=== PATIENT | female | born 2000 | race Caucasian/White ===

== ENCOUNTER 2022-05-31 22:38 | Emergency (ER) | payer SELFPAY ==
[2022-05-31 22:38] VITALS: BP 136/84; PULSE 87; RESP 18; TEMP 36.3; O2SAT 100; BMI 23.0
--- NOTE | 2022-06-01 00:33 | EX.ED.DYSGE1 ---
HPI History of Present Illness Chief Complaint: Allergic Reaction Narrative Narrative: Patient is a 21-year-old female with no significant past medical history. She states that she was recently on amoxicillin for an infection and took it for a full 7 days as directed. She states after finishing the medication she began with a pruritic rash. She states she went to urgent care where she was diagnosed with an allergic drug reaction and placed on prednisone. Patient states that she is taken a dose of prednisone but despite doing this she feels the rash has worsened and therefore she comes in for evaluation. Patient states other than the recent antibiotic she has no new exposures PFSH PFSH Allergy/AdvReac Type Severity Reaction Status Date / Time amoxicillin Allergy Rash Verified 05/31/22 22:41 Social History Smoking Status: Never smoker ROS ROS ED Constitutional Constitutional ED: Denies chills or fever(s) ENT ENT ED: Denies sore throat Cardiovascular Cardiovascular: Denies chest pain Respiratory/Chest Respiratory/Chest: Denies cough or dyspnea Gastrointestinal Gastrointestinal: Denies abdominal pain, diarrhea, nausea or vomiting Genitourinary Genitourinary ED: Denies dysuria Musculoskeletal Musculoskeletal: Denies myalgias Integumentary Reports rash Neurologic Neurologic: Denies headache(s) Hematologic/Lymphatic Hematologic/Lymphatic: Denies easy bleeding or easy bruising EXAM Physical Exam Const Vital Signs: 05/31/22 22:38 Temperature 97.3 F L Temperature Source Temporal Pulse Rate 87 Respiratory Rate 18 Blood Pressure 136/84 H Blood Pressure Mean 101 Pulse Ox 100 Oxygen Delivery Method Room Air Positive well nourished and well developed General Appearance ED: well developed HEENT Reports moist mucous membranes HEENT Narrative: No tongue or lip swelling no oral lesions no airway edema or compromise Eyes PERRL and EOMs intact bilaterally Neck supple Neck Narrative: No nuchal rigidity or meningeal signs Resp normal respiratory effort and clear to auscultation bilaterally Resp Narrative: No nasal flaring retractions tachypnea or accessory muscle use Cardio regular rate and regular rhythm Extremity normal to inspection Neuro oriented x3 and CN's II-XII intact bilaterally Sensorium / Orientation: alert Psych mental status grossly normal Skin Skin Narrative: Patient has a erythematous well-circumscribed urticarial rash across her legs chest abdomen and back and face without involvement of the palms or soles. No vesicular or pustule changes noted. No sloughing of the skin tissue to suggest Sampson-John syndrome no Nikolsky sign present to suggest toxic epidermal necrolysis. MDM MDM MDM Narrative Medical decision making narrative: Patient presented to the ER with stable vitals and she had no signs of respiratory distress. There are no oral lesions no airway edema or compromise. there is no Nikolsky sign present and there is no coalescing lesions or sloughing of skin tissue to suggest TENS or Sampson-John syndrome. At this time I feel the patient's rash is related to a drug reaction which will take time to resolve and she is already been prescribed prednisone. Therefore should be given a Kenalog injection in the ER to try and help reduce/control her symptoms. However at this time as she has no signs of overt infection or respiratory distress there is no need for further evaluation and she is otherwise safe for discharge Discharge Plan Triage Chief Complaint: Allergic Reaction ED Provider: Markell Beltran Dx/Rx/DC Orders Clinical Impression: Allergic reaction Instructions: ED Drug Reaction, Other Stand Alone Forms: ED Work / School Excuse Primary Care Provider: GUANAKO PATHAK Referrals: GUANAKO PATHAK [Other] Activity Restrictions/Additional Instructions: Continue the prednisone that was prescribed by the outpatient clinic. You may take Benadryl up to 3 times a day and use [id number] Pepcid twice a day to help further control itch. If you notice a fever over 100.4 you develop lesions in your mouth or around your eyes please return for repeat evaluation Also please list penicillin as an allergy from now on Disposition Disposition: Home, Self Care Discharge Date/Time: 06/01/22 01:17
[2022-06-01] MEDS: Triamcinolone Acetonide 40 MG/ML Vial 80 MG IM (00:43)
[2022-06-01 00:52] VITALS: BP 128/64; PULSE 74; RESP 18; O2SAT 100
== END 2022-06-01 01:17 | disposition home or self-care (01) ==
PROVIDERS: Emergency Provider Emergency Medicine; Visit Provider Emergency Medicine
DX: T36.0X5A Adverse effect of penicillins, initial encounter (principal); R21 Rash and other nonspecific skin eruption
CPT/HCPCS: 96372; 99282